=== PATIENT | female | born 1955 | race Caucasian/White ===

== ENCOUNTER → 2016-03-20 | Outpatient (CLI) | payer OTHER ==
--- NOTE | 2016-03-20 12:59 | WOMENS IMAGING REPORT ---
EXAM DESCRIPTION: BILAT SCREENING MAMMO W/CAD COMPLETED DATE/TIME: 03/20/2016 11:06 am REASON FOR STUDY: Z12.31 ROUTINE SCREENING MAMMO Z12.31 ENCNTR SCREEN MAMMOGRAM FOR MALIGNANT NEOPL ASM OF DOREEN COMPARISON: October 17 TECHNIQUE: Standard craniocaudal and mediolateral oblique views of each breast recorded using SenGenixa l acquisition. LIMITATIONS: None. FINDINGS: No masses, calcifications or architectural distortion. No areas of suspicion. Read with the assistance of CAD. .[facility] - R2 Cenova Version 1.3 .[facility] Imaging - R2 Cenova Version 1.3 .[facility] Imaging - R2 Cenova Version 2.4 .[facility] [place] - R2 Cenova Version 2.4 .[facility] - R2 Youth Support Worker Version 9.2 BREAST DENSITY: b. There are scattered areas of fibroglandular density. BIRAD: 1 NEGATIVE RECOMMENDATION: ROUTINE SCREENING COMMENT: PATIENT NOTIFIED BY LETTER. The [employer] recommends an annual screening mammogram for women aged 40 years or over. Each patient will receive a reminder prior to the anniversary date of her mammogram. The [employer] [place] [employer] (ACR) has developed recommendations for screening MRI of the breast s in certain patient populations, to be used in conjunction with mammography. Breast MRI surveillanc e may be appropriate for women with more than 20% lifetime risk of developing breast cancer as deter mined by genetic testing, significant family history of the disease, or history of mantle radiation f or Hodgkins Disease. ACR Practice Guidelines 2008. TECHNICAL DOCUMENTATION: FINDING NUMBER: (1) ASSESSMENT: (1) JOB ID: [id number] [employer]- All Rights Reserved
== END ==
LOC: WI 09:57
PROVIDERS: ATTEND Family Medicine
DX: Z12.31 Encounter for screening mammogram for malignant neoplasm of breast (principal)
CPT/HCPCS: 77067; G0202

== ENCOUNTER → 2017-05-20 | Outpatient (CLI) | payer OTHER ==
--- NOTE | 2017-05-20 12:56 | WOMENS IMAGING REPORT ---
EXAM DESCRIPTION: BILAT SCREENING MAMMO W/CAD COMPLETED DATE/TIME: 05/20/2017 8:13 am REASON FOR STUDY: SCREENING MAMMO Z12.31 ENCNTR SCREEN MAMMOGRAM FOR MALIGNANT NEOPLASM OF DOREEN COMPARISON: 2012 to 2014 TECHNIQUE: Standard craniocaudal and mediolateral oblique views of each breast recorded using digita l acquisition. LIMITATIONS: None. FINDINGS: No masses, calcifications or architectural distortion. No areas of suspicion. Read with the assistance of CAD. .[facility] - R2 Cenova Version 1.3 .[facility] Imaging - R2 Cenova Version 1.3 .[facility] Imaging - R2 Cenova Version 2.4 .[facility] [place] R2 Cenova Version 2.4 .[facility] - R2 Cardiovascular Radiologic Technologist Version 9.2 IMPRESSION: NORMAL MAMMOGRAM. BIRADS 1. BREAST DENSITY: b. There are scattered areas of fibroglandular density. BIRAD: 1 NEGATIVE RECOMMENDATION: ROUTINE SCREENING COMMENT: The patient has been notified of the results by letter per MQSA requirements. Additional no tification policies are in place for contacting patient with suspicious or incomplete findings. Quality ID #225: The [employer] recommends an annual screening mammogram for women aged 40 years or over. This facility utilizes a reminder system to ensure that all patients receive reminder letters, and/or direct phone calls for appointments. This includes reminders for routine scr eening mammograms, diagnostic mammograms, or other Breast Imaging Interventions when appropriate. Th is patient will be placed in the appropriate reminder system. The [employer] (ACR) has developed recommendations for screening MRI of the breast s in certain patient populations, to be used in conjunction with mammography. Breast MRI surveillanc e may be appropriate for women with more than 20% lifetime risk of developing breast cancer as deter mined by genetic testing, significant family history of the disease, or history of mantle radiation f or Hodgkins Disease. ACR Practice Guidelines 2008. TECHNICAL DOCUMENTATION: FINDING NUMBER: (1) ASSESSMENT: (1) JOB ID: [id number] [employer]- All Rights Reserved Reading location - IP/workstation name: [email or web address]
== END ==
LOC: WI 07:31
PROVIDERS: ATTEND Family Medicine
DX: Z12.31 Encounter for screening mammogram for malignant neoplasm of breast (principal)
CPT/HCPCS: 77067

== ENCOUNTER → 2018-07-30 | Outpatient (CLI) | payer OTHER ==
--- NOTE | 2018-08-02 14:21 | WOMENS IMAGING REPORT ---
EXAM DESCRIPTION: BILAT SCREENING MAMMO W/CAD COMPLETED DATE/TIME: 07/30/2018 9:02 am REASON FOR STUDY: Z12.31 ENCOUNTER FOR SCREENING MAMMOGRAM FOR MALIGNANT NEOPLASM OF YHREDJX52.31 E NCNTR SCREEN MAMMOGRAM FOR MALIGNANT NEOPLASM OF DOREEN COMPARISON: Multiple since 2009 EXAM PARAMETERS: Standard craniocaudal and mediolateral oblique views of each breast recorded using digital acquisition. Read with the assistance of CAD. .[facility] - Acrinta Coin Teller Version 9.2 LIMITATIONS: None. FINDINGS: RIGHT BREAST MASSES: No suspicious masses. CALCIFICATIONS: Tiny calcifications are present in the right breast retroareolar region centrally, ab out 5 cm from the nipple. These require further evaluation with compression magnification views, 90 mediolateral view whole breast. ARCHITECTURAL DISTORTION: None. DEVELOPING DENSITY: None. ASYMMETRY: None noted. OTHER: No other significant findings. LEFT BREAST MASSES: No suspicious masses. CALCIFICATIONS: No new or suspicious calcifications. ARCHITECTURAL DISTORTION: None. DEVELOPING DENSITY: None. ASYMMETRY: None noted. OTHER: No other significant findings. IMPRESSION: Calcifications in the central right breast for which additional diagnostic compression m agnification mammograms are recommended No mammographic evidence for malignancy left breast 0 Incomplete: Needs Additional Imaging Evaluation and/or prior Mammograms for Comparison. BREAST DENSITY: b. There are scattered areas of fibroglandular density. BIRAD: ASSESSMENT: 0 Incomplete: Needs Additional Imaging Evaluation and/or prior Mammograms for C omparison. RECOMMENDATION: RECOMMENDED FOLLOW-UP: Additional diagnostic mammograms right breast calcifications The patient will be contacted for additional imaging. COMMENT: The patient has been notified of the results by letter per SA requirements. Additional no tification policies are in place for contacting patient with suspicious or incomplete findings. Quality ID #225: The [employer] recommends an annual screening mammogram for women aged 40 years or over. This facility utilizes a reminder system to ensure that all patients receive reminder letters, and/or direct phone calls for appointments. This includes reminders for routine scr eening mammograms, diagnostic mammograms, or other Breast Imaging Interventions when appropriate. Th is patient will be placed in the appropriate reminder system. TECHNICAL DOCUMENTATION: FINDING NUMBER: (1) ASSESSMENT: (1) JOB ID: [id number] [employer]- All Rights Reserved Reading location - IP/workstation name: [email or web address]
== END ==
LOC: WI 08:39
PROVIDERS: ATTEND Family Medicine
DX: Z12.31 Encounter for screening mammogram for malignant neoplasm of breast (principal); R92.0 Mammographic microcalcification found on diagnostic imaging of breast
CPT/HCPCS: 77067

== ENCOUNTER → 2018-08-05 | Outpatient (CLI) | payer OTHER ==
--- NOTE | 2018-08-05 15:56 | WOMENS IMAGING REPORT ---
EXAM DESCRIPTION: RIGHT DIAGNOSTIC MAMMO W/CAD COMPLETED DATE/TIME: 08/05/2018 9:08 am REASON FOR STUDY: R92.0 MAMMOGRAPHIC MICROCALCIFICATION FOUND ON DIAGNOSTIC IMAGING OF BREAST R92.0 MAMMOGRAPHIC MICROCALCIFICATION FOUND ON DX IMAGING OF COMPARISON: Multiple since 2009 EXAM PARAMETERS: Compression magnification craniocaudal and 90 oblique images of the breast recorde d with digital acquisition. Right whole breast 90 mediolateral view Read with the assistance of CAD. .[facility] - R2 Fagot Maker Version 9.2 LIMITATIONS: None. FINDINGS: BREAST LATERALITY: Right MASSES: No suspicious masses. CALCIFICATIONS: Calcifications are present in the right breast 12 o'clock position about 5 to 6 cm fr om the nipple. These are variable in size, shape, and density. Stereotactic biopsy is recommended ( BI-RADS 5 Highly suggestive of malignancy. Biopsy should be performed in the absence of clinical con tra-indication. ). ARCHITECTURAL DISTORTION: None. DEVELOPING DENSITY: None. ASYMMETRY: None noted. OTHER: No other significant findings. IMPRESSION: Right breast calcifications variable in size shape and density for which stereotactic bi opsy is recommended BREAST DENSITY: b. There are scattered areas of fibroglandular density. BIRAD: ASSESSMENT: 5 Highly suggestive of malignancy. Biopsy should be performed in the absence of clinical contra-indication. RECOMMENDATION: RECOMMENDED FOLLOW UP: Right breast stereotactic biopsy SPECIFIC INTERVENTION/IMAGING/CONSULTATION RECOMMENDED:Right breast stereotactic biopsy for microcalc ifications 12 o'clock position COMMUNICATION:Patient notified by letter COMMENT: The patient has been notified of the results by letter per MQSA requirements. Additional no tification policies are in place for contacting patient with suspicious or incomplete findings. Quality ID #225: The [employer] recommends an annual screening mammogram for women aged 40 years or over. This facility utilizes a reminder system to ensure that all patients receive reminder letters, and/or direct phone calls for appointments. This includes reminders for routine scr eening mammograms, diagnostic mammograms, or other Breast Imaging Interventions when appropriate. Th is patient will be placed in the appropriate reminder system. TECHNICAL DOCUMENTATION: FINDING NUMBER: (1) ASSESSMENT: (1) JOB ID: [id number] [employer]- All Rights Reserved Reading location - IP/workstation name: [email or web address]
== END ==
LOC: WI 08:40
PROVIDERS: ATTEND Family Medicine
DX: R92.0 Mammographic microcalcification found on diagnostic imaging of breast (principal)

== ENCOUNTER → 2018-08-26 | Day surgery (SDC) | payer OTHER ==
[~2018-08-26] MED LIST: LIDOCAINE 1%/EPINEPHRINE INJ 20 ML VIAL ONE
--- NOTE | 2018-08-26 14:01 | WOMENS IMAGING REPORT ---
EXAM DESCRIPTION: RIGHT DIG DX MAMMO NO CHG COMPLETED DATE/TIME: 08/26/2018 1:20 pm REASON FOR STUDY: POST STEREO CLIP PLACEMENT COMPARISON: None. TECHNIQUE: CC and true lateral views of the right breast. LIMITATIONS: None. FINDINGS: There is a marker clip in the upper outer quadrant at site of previously described microca lcifications. IMPRESSION: Documentation of marker clip placement. TECHNICAL DOCUMENTATION: JOB ID: [id number] [employer]- All Rights Reserved Reading location - IP/workstation name: [email or web address]
--- NOTE | 2018-08-26 14:18 | Discharge Summary ---
Discharge Summary (SDC) - Discharge Final Diagnosis: Microcalcifications right breast Date of Surgery: 08/26/18 Discharge Date: 08/26/18 Condition: Good Treatment or Instructions: Supportive bra; Tylenol or Motrin as needed pain; follow-up with Dr. Rodriguez at [place] [facility] in 1 to 2 weeks. Referrals: MORA PAULA MD [Primary Care Provider] - Discharge Diet: As Tolerated Discharge Activity: Activity As Tolerated Home Care Assistance: None Needed Report the Following to Your Physician Immediately: Shortness of Breath, Increase in Pain, Fever over 101 Degrees
--- NOTE | 2018-08-26 14:35 | Operative Report ---
Operative Report DATE OF SURGERY: 08/26/18 PREOPERATIVE DIAGNOSIS: Abnormal microcalcifications deep 9 o'clock position ri ght breast POSTOPERATIVE DIAGNOSIS: Same OPERATION: 1. Stereotactically directed incision mammotomy core biopsies right breast microcalcifications. 2. Placement of clip marker right breast. 3. Interpretation of intraoperative mammography. 4. Interpretation of specimen radiograph SURGEON: HUGO BURCH ANESTHESIA: Local TISSUE REMOVED OR ALTERED: Multiple cores right breast COMPLICATIONS: None ESTIMATED BLOOD LOSS: Minimal INTRAOPERATIVE FINDINGS: See below PROCEDURE: Stereotactic suite in the radiology department [facility]. The right breast was placed in compression, and a CC approach was used to localize the target microcalcifications in the deep aspect of the right breast at the 9 o'clock position. Surgical plan surgical timeout were conducted. The surface of the right breast was prepped with Betadine, anesthetized 1% plain lidocaine. A jonathan was made and skin with 11 blade and the mammotome advanced appropriate depth. Pre-and post fire films showed good alignment between the microcalcifications and the mammotome tip. Approximately 9 cores were taken of the target microcalcifications. Specimens were collected and placed on a Benja dish, and imaged using the specimen radiograph machine. Findings were consistent with acquisition of microcalcifications consistent with the target tissue. We placed a clip marker in the breast cavity, remove the mammotome, and post biopsy imaging showed retention of the clip in the right breast cavity. Compression was applied to the right breast. Patient tolerated procedure well. There were no complications. Discharge instructions provided.
== END ==
LOC: RAD 11:04
PROVIDERS: ATTEND Surgery
DX: R92.0 Mammographic microcalcification found on diagnostic imaging of breast (principal)
CPT/HCPCS: 88305 ×2; 19081; J3490

== ENCOUNTER 2018-11-17 06:52 | Day surgery (SDC) | payer OTHER ==
[2018-11-15 11:52] LABS: HEMATOCRIT 41.3 % (36.0-47.0); HEMOGLOBIN 13.9 g/dL (12.0-15.5); MEAN CORPUSCULAR HEMOGLOBIN 28.2 pg (27.0-33.4); MEAN CORPUSCULAR HGB CONC 33.6 g/dL (32.0-36.0); MEAN CORPUSCULAR VOLUME 84 fl (80-97); PLATELET COUNT 409 10^3/uL (150-450); RED BLOOD COUNT 4.92 10^6/uL (3.72-5.28); RED CELL DISTRIBUTION WIDTH 14.6 % (11.5-14.0)
--- NOTE | 2018-11-15 12:06 | EKG REPORT ---
SEVERITY:- ABNORMAL ECG - SINUS RHYTHM INCOMPLETE RIGHT BUNDLE BRANCH BLOCK : Confirmed by: Saida Nix MD 15-Nov-2018 12:05:55
[2018-11-15 12:10] LABS: ANION GAP 13 (5-19); BLOOD UREA NITROGEN 11 mg/dL (7-20); CALCIUM 10.8 mg/dL (8.4-10.2); CARBON DIOXIDE 29 mmol/L (22-30); CHLORIDE 97 mmol/L (98-107); GLUCOSE 121 mg/dL (75-110); POTASSIUM 4.5 mmol/L (3.6-5.0)
[~2018-11-17 06:52] MED LIST changes: +CEFAZOLIN 1 GM/D5W RTU 1 GM/50 ML RTUPB IV PRN; +LACTATED RINGERS 1000 ML IV PRN; +LIDOCAINE 0.5% INJ-PF (5 MG/ML) 50 ML SDV SUBCUT PRN; -LIDOCAINE 1%/EPINEPHRINE INJ 20 ML VIAL ONE
[2018-11-17] MEDS ORDERED: CEFAZOLIN 1 GM/D5W RTU 1 GM/50 ML RTUPB IV ONE (07:09)
[2018-11-17] MEDS ORDERED: LIDOCAINE 4% TRANSPARENT DRESSING 5 GM KIT TP ONE (07:30)
[2018-11-17] MEDS ORDERED: LIDOCAINE 4% TRANSPARENT DRESSING 5 GM KIT ONE (07:37)
--- NOTE | 2018-11-17 08:06 | EKG REPORT ---
SEVERITY:- BORDERLINE ECG - SINUS RHYTHM BORDERLINE T ABNORMALITIES, ANTERIOR LEADS : Confirmed by: Saida Nix MD 17-Nov-2018 08:05:36
[2018-11-17] MEDS ORDERED: LIDOCAINE 2% INJ (20 MG/ML) 20 ML MDV ONE (08:25)
[2018-11-17 08:39] LABS: HEMOGLOBIN 12.8 g/dL (12.0-15.5); MEAN CORPUSCULAR HEMOGLOBIN 27.7 pg (27.0-33.4); MEAN CORPUSCULAR HGB CONC 32.9 g/dL (32.0-36.0); MEAN CORPUSCULAR VOLUME 84 fl (80-97); PLATELET COUNT 352 10^3/uL (150-450); RED BLOOD COUNT 4.64 10^6/uL (3.72-5.28); RED CELL DISTRIBUTION WIDTH 14.7 % (11.5-14.0); WHITE BLOOD COUNT 6.5 10^3/uL (4.0-10.5)
[2018-11-17] MEDS ORDERED: SUCCINYLCHOLINE CHLORIDE INJ 200 MG/10 ML VIAL ONE (10:00)
[2018-11-17] MEDS ORDERED: LIDOCAINE 1%/EPINEPHRINE INJ 20 ML VIAL ONE (10:11)
[2018-11-17] MEDS ORDERED: MICROFIBRILLAR COLLAGEN 1 GM PACK ONE (10:11)
[2018-11-17] MEDS ORDERED: HYDROMORPHONE HCL INJ/PF 2 MG/ML AMPULE ONE (10:16)
[2018-11-17] MEDS ORDERED: MIDAZOLAM 2 MG/2 ML INJ ONE (10:16)
[2018-11-17] MEDS ORDERED: FENTANYL CITRATE INJ/PF 250 MCG/5 ML AMPULE ONE (10:16)
[2018-11-17] MEDS ORDERED: PROPOFOL INJ 200 MG/20 ML VIAL IV ONE (10:17)
[2018-11-17] MEDS ORDERED: METHYLENE BLUE 50 MG/10 ML AMPULE ONE (10:29)
[2018-11-17] MEDS ORDERED: DEXAMETHASONE SOD PHOSPHATE INJ 4 MG/1 ML VIAL ONE (10:35)
[2018-11-17] MEDS ORDERED: ONDANSETRON HCL INJ/PF 4 MG/2 ML SDV ONE (10:35)
--- NOTE | 2018-11-17 11:15 | RADIOLOGY REPORT (SQ) ---
EXAM DESCRIPTION: NM LYMPHATICS/LYMPH GLANDS COMPLETED DATE/TIME: 11/17/2018 10:33 am REASON FOR STUDY: MALIGNANT NEOPLASM OF RT BREAST C50.911 MALIGNANT NEOPLASM OF UNSP SITE OF RIGHT FEMALE SAYRA COMPARISON: None. RADIONUCLIDE AND DOSE: 549 microcuries TC-99m tilmanocept - [employer]. The route of agent administration: Subcutaneous in the skin. TECHNIQUE: The skin of the right breast was prepped in sterile fashion. The radiopharmaceutical was administered in equally divided doses in the periareolar breast. LIMITATIONS: None. FINDINGS: Images demonstrate activity at the injection site. IMPRESSION: ADMINISTRATION OF RADIOPHARMACEUTICAL FOR SENTINEL LYMPH NODE EVALUATION. TECHNICAL DOCUMENTATION: JOB ID: [id number] [employer]- All Rights Reserved Reading location - IP/workstation name: [email or web address]
[2018-11-17] MEDS ORDERED: LIDOCAINE 1% INJ (10 MG/ML) 10 ML MDV INJ ONE (11:41)
[2018-11-17] MEDS ORDERED: PROMETHAZINE HCL INJ 25 MG/1 ML VIAL IV PRN (11:47)
[2018-11-17] MEDS ORDERED: DIPHENHYDRAMINE HCL 50 MG/ML VIAL IV PRN (11:47)
[2018-11-17] MEDS ORDERED: FENTANYL CITRATE INJ/PF 100 MCG/2 ML AMPUL IV PRN ×3 (11:47)
[2018-11-17] MEDS ORDERED: MEPERIDINE HCL/PF INJ 25 MG/1 ML DISP.SYRIN IV PRN (11:47)
[2018-11-17] MEDS ORDERED: MORPHINE SULFATE 10 MG/ML INJ IV PRN (11:47)
[2018-11-17] MEDS ORDERED: OXYCODONE-ACETAMINOPHEN 5-325 MG TABLET PO PRN (13:04)
--- NOTE | 2018-11-17 13:04 | Discharge Summary ---
Discharge Summary (SDC) - Discharge Final Diagnosis: Right breast cancer Date of Surgery: 11/17/18 Discharge Date: 11/17/18 Condition: Good Treatment or Instructions: [facility] [address], [place] [address] Care Instructions Following Your Lumpectomy with Axillary Lymph Node Dissection Activities: Resume your normal activities when you feel comfortable. It is best to remain as active as possible to speed your recovery. It is common to experience some fatigue after surgery. Avoid strenuous activity such as weight lifting, tennis, etc at your surgical site for one week. Perform gentle arm exercises daily and do not favor your operative arm to due increased risk of mobility issues postoperatively. No driving for 7 days after surgery. Do not drive if you are taking pain medication other than Tylenol or Ibuprofen. No swimming, tub baths or soaking in a hot tub for 4 weeks. There are no dietary restrictions. Do not smoke as this impairs wound healing. Surgical Site care: You may shower 24 hours after surgery, leave skin glue intact. Wash the wound with soap and water using your hands. Do not scrub the incision. Pat the area dry with a towel. You do not need to recover the wound although some patients find that they feel more comfortable using a light dressing for a few days to absorb any minimal drainage which may occur. Many patients also find that keeping a dressing around the drain exit site is helpful to absorb any drainage which may leak around the tubing. If you use a dressing in this manner change it at least every day. Do not use heating pad or apply an ice pack to the operative site. You may apply deodorant if you are careful to avoid getting it on the wound itself. Most patients are more comfortable if they wear a supportive, sports-type bra 08/09 for the first few days after surgery. Ice packs may help relieve the discomfort and swelling as well in the first [address] an ice pack directly on the skin. Do not use a heating pad on the operative sites. Medications: You may take Toradol 10mg one pill by mouth every six hours as needed for pain. Do not take additional NSAIDs with Toradol. You may take Tylenol as a supplement. Resume all of your normal prescription medications after your surgery unless instructed otherwise. You may experience constipation after surgery while taking pain medications. If using a narcotic on a regular basis, take a stool softener such as Colace twice a day. It is helpful to stay hydrated by drinking lots of fluids. Walking is also helpful and is good exercise after surgery. If you need extra help, use Milk of Magnesia according to the directions on the package. Follow-up: Call our office at to make a follow-up appointment in 10-14 days. Your doctor will call to discuss the pathology report with you as soon as it is available. Concerns: Some bruising will occur and will go away over time. If you have a fever of 101.5 or greater, chills, redness at the incision site, excessive drainage from your wound or severe pain not relieved by pain medication, call your doctor. A physician is available 24 hours a day 7 days a week in addition to regular office hours. If problems arise after normal office hours please call the hospital at . Please call if you have any questions or concerns. Prescriptions: Ketorolac Tromethamine [Toradol 10 mg Tablet] 10 mg PO Q6HP PRN #20 tablet PRN Reason: Referrals: MORA PAULA MD [Primary Care Provider] - Discharge Diet: As Tolerated Discharge Activity: Activity As Tolerated, Balance Activity w/Rest, Walk Frequently Report the Following to Your Physician Immediately: Increase in Pain, Fever over 101 Degrees, Unusual Bleeding, Redness, Swelling, Warmth, Increased Soreness, Drainage-Foul Smelling
--- NOTE | 2018-11-17 13:10 | Operative Report ---
Operative Report DATE OF SURGERY: 11/17/18 PREOPERATIVE DIAGNOSIS: 1. Invasive lobular carcinoma right breast status post stereotactically. 2. Very strong family history of breast cancer. 3. CHEK-2 mutation POSTOPERATIVE DIAGNOSIS: Same OPERATION: 1. Needle localized open right breast lumpectomy. 2. Excision of posterior and anterior lumpectomy cavity munoz. 3. [place] lymph node biopsy right axilla x3 using dual mapping technique. 4. Interpretation of specimen radiograph SURGEON: HUGO RODRIGUEZ 1ST SOLDERING TECHNICIAN: HERSON FORD ANESTHESIA: GA TISSUE REMOVED OR ALTERED: Lumpectomy specimen right breast; posterior cavity margin; anterior cavity margin; sentinel lymph node x3 COMPLICATIONS: None ESTIMATED BLOOD LOSS: Minimal INTRAOPERATIVE FINDINGS: See below PROCEDURE: Patient was seen in the preop holding area with the right breast was marked. She had undergone needle localization of the clip marker in the right breast status post stereotactic biopsy, as well as lymphoscintigraphy of the right breast. There was an area of increased activity in the right axilla based on bedside neoprobe assessment by Dr. Rodriguez. The patient was then taken to the main operating room where general anesthesia was induced. Left arm was abducted, dressing removed from the right breast. The previously placed wire and needle were trimmed approximately 2 cm from the skin. We now injected approximately 2 cc of full-strength methylene blue in the right breast, areole or border, 10 o'clock position. The right breast was massaged. The right breast and axilla were then prepped and draped in sterile fashion. Surgical plan surgical timeout were conducted. We proceeded with the right breast lumpectomy first. I spoke with Dr. sewell, the radiologist, who indicated that the needle and wire were placed anteriorly into the central aspect of the right breast, above the areolar complex, with no blue dye injected. Therefore we anesthetized the skin adjacent to the localizing wire, and made approximately a 6cm incision encompassing the area in the superior aspect of the right breast. We now proceeded to remove a loose core of fat and the breast parenchyma in a calm-like fashion. This was rather challenging because the patient's breast was extremely fatty. The lumpectomy specimen was taken down to include the tip of the wire aspect of the right breast. The specimen was removed, and marked with a short suture in the superior position and a long suture in the lateral position. We then performed specimen radiograph demonstrated retention of the localization wire, and the previously placed clip marker. 2 views were obtained, and images reviewed with Dr. Bauer to confirm the above. The lumpectomy specimen was then analyzed by Dr. Edmund Cortes who felt that there were 2 nodules within the specimen likely the target tissue. Careful inspection of the lumpectomy cavity revealed a slightly fibrous area in the deep posterior wall. Therefore a posterior-deep portion of the lumpectomy cavity was resected to encompass this fibrous area. It was marked with sutures in the superior position, short, and lateral position, long. This was sent to Dr. Edmund Cortes who inspected it fresh, and felt the fibrotic area was in fact on the anterior or deep side of the specimen wall. Per Dr. Cortes's request, a third right breast specimen was obtained. This represented the anterior medial side of the original lumpectomy cavity. The reason for this was Dr. Cortes is concerned that index lumpectomy tissue may have contained a nodule close to the original margin. The small piece of primarily fatty tissue was removed from the breast, with a stitch placed in its center representing the inside or cavity side of the wall. Dry sponge was placed in the recesses of the wound, and our attention turned to the right axilla. Using the neoprobe for guidance, a suitable site for mini axillary incision was made. Skin was anesthetized with 1% plain lidocaine and a 3 cm incision was made in the low axilla. [place] node harvesting took place with the first second and third lymph nodes, all Level One, all blue and hot sent for permanent analysis. Of note all 3 lymph nodes in the same area was surrounded by amount of fibrotic tissue, possibly scirrhous reaction: They did not appear to be grossly involved with malignancy. The first sentinel node in vivo count was 7815 and the ex vivo count was 11, 495; second lymph node ex vivo count was 1407 and the third sentinel node had an in vivo count of 1980 an ex vivo count of 900. [place] counts were negligible. We felt that the breast conserving operation was complete. We checked the cavit ies for bleeding there was none. Avitene slurry was placed in the recesses of the wound, and wounds closed with 3-0 Vicryl Dermabond glue. Patient tolerated procedure well, extubated, and taken to recovery room stable condition. The physician family and divorce legal assistant, Ms. Salguero, provided assistance during this case by: Assisting retracting tissue, instillation of local anesthesia and closure of skin incisions.
[2018-11-17] MEDS ORDERED: OXYCODONE-ACETAMINOPHEN 5-325 MG TABLET ONE (13:43)
[2018-11-17] MEDS ORDERED: OXYCODONE-ACETAMINOPHEN 5-325 MG TABLET PO ONE (13:47)
[2018-11-17 15:01] VITALS: BP 160/84
--- NOTE | 2018-11-17 15:17 | WOMENS IMAGING REPORT ---
EXAM DESCRIPTION: WIRE LOC MAMMO COMPLETED DATE/TIME: 11/17/2018 11:07 am REASON FOR STUDY: RT BREAST NEEDLE LOC FOR RT BREAST CANCER C50.911 MALIGNANT NEOPLASM OF UNSP SITE OF RIGHT FEMALE SAYRA COMPARISON: 08/26/2018 TECHNIQUE: The localizer clip in the right breast was localized mammographically using a grid marke r. The skin of the breast was prepped in sterile fashion and local anesthesia was provided. The loc alization needle was advanced to the target. The tip was positioned adjacent to the target and confi rmed with two orthogonal views. Surgical dye was not injected for this procedure. The wire was place d through the needle and the hook engaged. Post procedure mammogram demonstrates satisfactory positio n of the needle and wire. Specimen radiograph demonstrates the intact localization wire as well as the targeted lesion within t he biopsy specimen. LIMITATIONS: None. FINDINGS: Procedure as above. Pathology: Pending. IMPRESSION: SUCCESSFUL NEEDLE LOCALIZATION OF THE LESION IN THE RIGHT BREAST. FOLLOW-UP PER THE PATIENT'S SURGEON. TECHNICAL DOCUMENTATION: JOB ID: [id number] [employer]- All Rights Reserved Reading location - IP/workstation name: [email or web address]
--- NOTE | 2018-11-17 15:18 | RADIOLOGY REPORT (SQ) ---
EXAM DESCRIPTION: BREAST SPECIMEN COMPLETED DATE/TIME: 11/17/2018 12:32 pm REASON FOR STUDY: RIGHT BREAST SPECIMEN IN OR C50.911 MALIGNANT NEOPLASM OF UNSP SITE OF RIGHT FEMA [place] SAY[place] COMPARISON: Earlier the same day. TECHNIQUE: Specimen radiograph from breast procedure performed in the operating room. LIMITATIONS: None. FINDINGS: Specimen radiograph from breast procedure performed in the operating room. Please see procedure note for details and final pathology. IMPRESSION: Specimen radiograph. TECHNICAL DOCUMENTATION: JOB ID: [id number] Reading location - IP/workstation name: [email or web address]
== END 2018-11-17 14:45 | disposition home or self-care (01) ==
LOC: OROUT 06:52
PROVIDERS: ATTEND Surgery
DX: C50.911 Malignant neoplasm of unspecified site of right female breast (principal); I10 Essential (primary) hypertension; Z79.84 Long term (current) use of oral hypoglycemic drugs; Z79.82 Long term (current) use of aspirin; Z79.899 Other long term (current) drug therapy; E66.9 Obesity, unspecified; Z68.41 Body mass index [BMI] 40.0-44.9, adult; G47.33 Obstructive sleep apnea (adult) (pediatric); E03.9 Hypothyroidism, unspecified
CPT/HCPCS: 19301; 38500; 93005 ×2; 36415 ×2; 82962; 85027 ×2; 80048; 88342 ×2; 88341 ×2; 88307 ×2; 78195; 93010 ×2; 01610; 19281; 76098; A9520; J2250; J3490 ×4; J0690; J1100; J3010; J0330; J2405; J2704; Q9968; 1610; J1170

== ENCOUNTER → 2018-12-29 | Outpatient (CLI) | payer OTHER ==
--- NOTE | 2018-12-29 13:07 | RADIOLOGY REPORT (SQ) ---
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 RADIONUCLIDE AND DOSE: 21.8 millicuries Tc99m HDP. The route of agent administration: Intravenous. ADDITIONAL DRUGS AND DOSES: None. TECHNIQUE: Routine delayed images at 3 hour post radionuclide injection acquired of the bony skeleto n including anterior and posterior whole-body projections and additional focused images as needed. LIMITATIONS: None. FINDINGS: BONES: Minimal uptake involving the lumbar spine most marked at L1 and L2. This is most l ikely degenerative. There is uptake in the right ankle and left midfoot. KIDNEYS: Symmetric excretion without obstruction. OTHER: No other significant finding. IMPRESSION: No evidence of metastatic disease. COMMENT: Quality measure 147: Current bone scan is compared with any available plain radiographs, p rior bone scans, and CT/MRI. TECHNICAL DOCUMENTATION: JOB ID: [id number] [employer]- All Rights Reserved Reading location - IP/workstation name: [email or web address]
== END ==
LOC: RAD 08:05
PROVIDERS: ATTEND Internal Medicine Hematology & Oncology
DX: C50.811 Malignant neoplasm of overlapping sites of right female breast (principal)
CPT/HCPCS: 78306; A9561; Q9969

== ENCOUNTER → 2018-12-31 | Outpatient (CLI) | payer OTHER ==
--- NOTE | 2019-01-01 17:08 | RADIOLOGY REPORT (SQ) ---
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 Images reviewed with lung, soft tissue and bone windows. Reconstructed coronal a nd sagittal MPR images reviewed. All images stored on PACS. CT scan of the abdomen and pelvis performed with intravenous and with oral contrastusing helical scan ghazal technique with dynamic intravenous contrast injection. Images reviewed with lung, soft tissue a nd bone windows. Reconstructed coronal and sagittal MPR images reviewed. Delayed images for evaluat ion of the urinary system also acquired and evaluated. All images stored on PACS. All CT scanners at this facility use dose modulation, iterative reconstruction, and/or weight based d osing when appropriate to reduce radiation dose to as low as reasonably achievable (ALARA). [facility]: Dose Right [facility]: CareDose [facility]: Dose Right [facility]: Teradose 4D [facility]: [employer] Technologies RADIATION DOSE: CT Rad equipment meets quality standard of care and radiation dose reduction techniq ues were employed. CTDIvol: 24.4 - 27.4 mGy. DLP: 3996 mGy-cm. . LIMITATIONS: None. FINDINGS: CHEST: LUNGS AND PLEURA: No opacities, nodules, masses. No pneumothorax. No effusions. HILAR AND MEDIASTINAL STRUCTURES: No identified masses or abnormal nodes. HEART AND VASCULAR STRUCTURES: No aneurysm or dissection. No central pulmonary emboli. No pericardi al effusion. HARDWARE: None. THYROID AND OTHER SOFT TISSUES: Thyroid unremarkable. Post right breast surgery with 3.7 x 2 cm lump ectomy seroma. 2 cm right axillary lymph node axial image 18. BONES: No significant finding. OTHER: No other significant finding. ABDOMEN AND PELVIS: LIVER: Normal size. No masses. No dilated ducts. SPLEEN: Normal size. No focal lesions. PANCREAS: No masses. No significant calcifications. No adjacent inflammation or peripancreatic fluid collections. Pancreatic duct not dilated. GALLBLADDER: Gallstones. No inflammatory changes to suggest cholecystitis. ADRENAL GLANDS: No significant masses or asymmetry. RIGHT KIDNEY AND URETER: No solid masses. No significant calcification. No hydronephrosis or hydroure ter. LEFT KIDNEY AND URETER: No solid masses. No significant calcification. No hydronephrosis or hydrouret er. AORTA AND VESSELS: No aneurysm. No dissection. Renal arteries, SMA, celiac without stenosis. RETROPERITONEUM: No retroperitoneal adenopathy, hemorrhage or masses. BOWEL AND PERITONEAL CAVITY: Patient drank oral contrast. No masses or inflammatory changes. No mulu e fluid or peritoneal masses. Few scattered colonic diverticuli without CT signs of acute diverticul itis APPENDIX: Normal. ABDOMINAL WALL: No masses. No hernias. PELVIS: No mass or free fluid. Normal bladder. Normal size female pelvic organs. BONES: No significant or acute findings. OTHER: No other significant finding. IMPRESSION: Post right breast surgery. No CT evidence of metastatic disease given history of breast cancer over the chest abdomen or pelvis Gallstones without CT evidence of acute cholecystitis. Colonic diverticulosis without CT signs of ac [place] diverticulitis. NORMAL CT OF THE ABDOMEN AND PELVIS WITH ORAL AND INTRAVENOUS CONTRAST. TECHNICAL DOCUMENTATION: JOB ID: [id number] Quality ID # [id number]: Final reports with documentation of one or more dose reduction techniques (e.g., Au tomated exposure control, adjustment of the mA and/or kV according to patient size, use of iterative reconstruction technique) 2010 [employer]- All Rights Reserved Reading location - IP/workstation name: [email or web address]
--- NOTE | 2019-01-01 17:08 | RADIOLOGY REPORT (SQ) ---
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 Images reviewed with lung, soft tissue and bone windows. Reconstructed coronal a nd sagittal MPR images reviewed. All images stored on PACS. CT scan of the abdomen and pelvis performed with intravenous and with oral contrastusing helical scan ghazal technique with dynamic intravenous contrast injection. Images reviewed with lung, soft tissue a nd bone windows. Reconstructed coronal and sagittal MPR images reviewed. Delayed images for evaluat ion of the urinary system also acquired and evaluated. All images stored on PACS. All CT scanners at this facility use dose modulation, iterative reconstruction, and/or weight based d osing when appropriate to reduce radiation dose to as low as reasonably achievable (ALARA). [facility]: Dose Right [facility]: CareDose [facility]: Dose Right [facility]: Teradose 4D [facility]: [employer] RADIATION DOSE: CT Rad equipment meets quality standard of care and radiation dose reduction techniq ues were employed. CTDIvol: 24.4 - 27.4 mGy. DLP: 3996 mGy-cm. . LIMITATIONS: None. FINDINGS: CHEST: LUNGS AND PLEURA: No opacities, nodules, masses. No pneumothorax. No effusions. HILAR AND MEDIASTINAL STRUCTURES: No identified masses or abnormal nodes. HEART AND VASCULAR STRUCTURES: No aneurysm or dissection. No central pulmonary emboli. No pericardi al effusion. HARDWARE: None. THYROID AND OTHER SOFT TISSUES: Thyroid unremarkable. Post right breast surgery with 3.7 x 2 cm lump ectomy seroma. 2 cm right axillary lymph node axial image 18. BONES: No significant finding. OTHER: No other significant finding. ABDOMEN AND PELVIS: LIVER: Normal size. No masses. No dilated ducts. SPLEEN: Normal size. No focal lesions. PANCREAS: No masses. No significant calcifications. No adjacent inflammation or peripancreatic fluid collections. Pancreatic duct not dilated. GALLBLADDER: Gallstones. No inflammatory changes to suggest cholecystitis. ADRENAL GLANDS: No significant masses or asymmetry. RIGHT KIDNEY AND URETER: No solid masses. No significant calcification. No hydronephrosis or hydroure ter. LEFT KIDNEY AND URETER: No solid masses. No significant calcification. No hydronephrosis or hydrouret er. AORTA AND VESSELS: No aneurysm. No dissection. Renal arteries, SMA, celiac without stenosis. RETROPERITONEUM: No retroperitoneal adenopathy, hemorrhage or masses. BOWEL AND PERITONEAL CAVITY: Patient drank oral contrast. No masses or inflammatory changes. No mulu e fluid or peritoneal masses. Few scattered colonic diverticuli without CT signs of acute diverticul itis APPENDIX: Normal. ABDOMINAL WALL: No masses. No hernias. PELVIS: No mass or free fluid. Normal bladder. Normal size female pelvic organs. BONES: No significant or acute findings. OTHER: No other significant finding. IMPRESSION: Post right breast surgery. No CT evidence of metastatic disease given history of breast cancer over the chest abdomen or pelvis Gallstones without CT evidence of acute cholecystitis. Colonic diverticulosis without CT signs of ac [place] diverticulitis. NORMAL CT OF THE ABDOMEN AND PELVIS WITH ORAL AND INTRAVENOUS CONTRAST. TECHNICAL DOCUMENTATION: JOB ID: [id number] Quality ID # [id number]: Final reports with documentation of one or more dose reduction techniques (e.g., Au tomated exposure control, adjustment of the mA and/or kV according to patient size, use of iterative reconstruction technique) 2010 [employer]- All Rights Reserved Reading location - IP/workstation name: [email or web address]
== END ==
LOC: RAD 12:27
PROVIDERS: ATTEND Internal Medicine Hematology & Oncology
DX: C50.811 Malignant neoplasm of overlapping sites of right female breast (principal); K80.80 Other cholelithiasis without obstruction; K57.30 Diverticulosis of large intestine without perforation or abscess without bleeding
CPT/HCPCS: 71260; 74177; 82565

== ENCOUNTER 2019-01-26 05:36 | Day surgery (SDC) | payer OTHER ==
[2019-01-19 09:05] LABS: HEMATOCRIT 40.4 % (36.0-47.0); HEMOGLOBIN 13.3 g/dL (12.0-15.5); MEAN CORPUSCULAR HEMOGLOBIN 27.7 pg (27.0-33.4); MEAN CORPUSCULAR HGB CONC 32.8 g/dL (32.0-36.0); MEAN CORPUSCULAR VOLUME 85 fl (80-97); PLATELET COUNT 362 10^3/uL (150-450); RED BLOOD COUNT 4.78 10^6/uL (3.72-5.28); RED CELL DISTRIBUTION WIDTH 15.6 % (11.5-14.0); WHITE BLOOD COUNT 5.6 10^3/uL (4.0-10.5)
[2019-01-19 09:37] LABS: ANION GAP 14 (5-19); BLOOD UREA NITROGEN 12 mg/dL (7-20); CALCIUM 10.3 mg/dL (8.4-10.2); CARBON DIOXIDE 26 mmol/L (22-30); CHLORIDE 98 mmol/L (98-107); GLUCOSE 241 mg/dL (75-110); POTASSIUM 4.5 mmol/L (3.6-5.0)
--- NOTE | 2019-01-19 11:44 | EKG REPORT ---
SEVERITY:- BORDERLINE ECG - SINUS RHYTHM CONSIDER ANTERIOR INFARCT BORDERLINE T ABNORMALITIES, ANTERIOR LEADS : Confirmed by: Saida Nix MD 19-Jan-2019 11:44:12
[~2019-01-26 05:36] MED LIST changes: -CEFAZOLIN 1 GM/D5W RTU 1 GM/50 ML RTUPB IV PRN; +CEFAZOLIN SODIUM 1 GM in DEXTROSE 5%-WATER 50 ML IV PRN
[2019-01-26] MEDS ORDERED: FENTANYL CITRATE INJ/PF 250 MCG/5 ML AMPULE ONE ×2 (07:03→09:13)
[2019-01-26] MEDS ORDERED: MORPHINE SULFATE 10 MG/ML INJ ONE ×2 (07:04→09:14)
[2019-01-26] MEDS ORDERED: PROPOFOL INJ 200 MG/20 ML VIAL IV ONE (07:04)
[2019-01-26] MEDS ORDERED: MIDAZOLAM 2 MG/2 ML INJ ONE (07:05)
[2019-01-26] MEDS ORDERED: MICROFIBRILLAR COLLAGEN 1 GM PACK ONE (07:17)
[2019-01-26] MEDS ORDERED: LIDOCAINE 1%/EPINEPHRINE INJ 20 ML VIAL ONE (07:17)
[2019-01-26] MEDS ORDERED: DIPHENHYDRAMINE HCL 50 MG/ML VIAL IV PRN (08:00)
[2019-01-26] MEDS ORDERED: MORPHINE SULFATE 10 MG/ML INJ IV PRN (08:00)
[2019-01-26] MEDS ORDERED: PROMETHAZINE HCL INJ 25 MG/1 ML VIAL IV PRN (08:00)
[2019-01-26] MEDS ORDERED: MEPERIDINE HCL/PF INJ 25 MG/1 ML DISP.SYRIN IV PRN (08:00)
[2019-01-26] MEDS ORDERED: FENTANYL CITRATE INJ/PF 100 MCG/2 ML AMPUL IV PRN (08:00)
[2019-01-26] MEDS ORDERED: OXYCODONE-ACETAMINOPHEN 5-325 MG TABLET PO PRN ×3 (08:00→11:05)
[2019-01-26] MEDS ORDERED: KETOROLAC TROMETHAMINE INJ/PF 30 MG/1 ML SDV IV PRN (11:05)
[2019-01-26] MEDS ORDERED: NORMAL SALINE 1000 ML 1,000 ML IV PRN (11:05)
[2019-01-26] MEDS ORDERED: ONDANSETRON HCL INJ/PF 4 MG/2 ML SDV IV PRN (11:05)
[2019-01-26] MEDS ORDERED: KETOROLAC TROMETHAMINE 10 MG TABLET PO PRN (11:05)
--- NOTE | 2019-01-26 11:05 | Operative Report ---
Operative Report DATE OF SURGERY: 01/26/19 PREOPERATIVE DIAGNOSIS: 1. Invasive lobular carcinoma right breast, status post right breast lumpectomy and sentinel lymph node biopsy with residual cancer right breast. 2. Macromastia. 3. Strong family history of breast cancer. 4. CHEK-2 genetic mutation POSTOPERATIVE DIAGNOSIS: Same OPERATION: 1. Completion of right mastectomy with drain placement x2. 2. Risk reduction contralateral left mastectomy with drain placement x2 SURGEON: HUGO BURCH ANESTHESIA: GA TISSUE REMOVED OR ALTERED: Right breast with the sutures, long in the lateral position, short in the superior position; breast with silk sutures, long in the left lateral position, short in the superior position COMPLICATIONS: None ESTIMATED BLOOD LOSS: 150 cc INTRAOPERATIVE FINDINGS: See below PROCEDURE: The patient was seen in the preop holding area, breast marked, then taken to the main operating room where general anesthesia was induced. The arms were abducted, the patient was placed in a semi-reverse Trendelenburg position. Markings were made on both breast for planned bilateral mastectomy. Both breast chest wall and axilla were all prepped and draped in sterile fashion. Surgical plan and surgical timeout were conducted. We approached the right breast first. The intended line of incision encompassed the previous lumpectomy site, and the low axillary sentinel lymph node site. Lips was then cut into the right breast approximately 15 cm wide, and 50 cm long. Superior skin flaps raised with electrocautery. Naturally, due to patient's extremely large breasts, the flap development rather tedious developing the appropriate plane between the subcutaneous tissue, and the breast fat. The inferior skin flap was raised in a complementary fashion. The right breast was then taken off of the chest wall from the infraclavicular area, all the way to the sternal costal junction, inferiorly down to the origination of the serratus anterior muscle, and laterally towards the neural aspect of the latissimus dorsi muscle. Breast was taken off of the upper serratus muscle, and a portion of the lower axilla including several inflammatory appearing lymph nodes were taken with the right breast. The breast was marked with a long suture in the lateral position, short suture the superior position using 2-0 silk suture. The specimen was sent for permanent analysis. Hemostasis was checked and felt to be satisfactory. Laparotomy pads were packed in the recess of the lower right axilla We now performed the left mastectomy in an identical fashion. Of note there was no visible tumor encountered in either the right or the left mastectomy specimens. The left breast was similarly marked with a long suture lateral position short suture in the superior position and specimen sent for permanent analysis in formalin. We checked both wounds for any mechanical bleeding and there was none. Estimated blood loss was felt to be 150 cc. 2 large Nacho drains were placed in the right inferior lateral skin flap, and 2 additional Nacho drains were placed in the left lateral inferior skin flap. The peritoneal drains were directed in the following manner: The medial most drain covered the chest wall area, and the lateral most drain covered the lower axillary area. Of note the operative field following the bilateral mastectomies communicated underneath the sternal skin bridge. Both mastectomy incisions were closed with multiple running and interrupted 2-0 Vicryl sutures. Of note the skin flaps were pink and slightly injected in areas but did not appear ischemic. Once the incisions were closed, the drains were hooked to bulb suction with satisfactory vacuum. The skin incisions were then closed with a combination of Enfilm Dermabond glue. Patient tolerated the procedure well, extubated, taken recovery in stable condition. Total operating time approximately 2.5 hours.
[2019-01-26] MEDS ORDERED: CEFAZOLIN 1 GM/D5W RTU 1 GM/50 ML RTUPB IV SCH (11:15)
[2019-01-26] MEDS ORDERED: ACETAMINOPHEN INJ/PF 1000 MG/100 ML SDV IV SCH (12:00)
[2019-01-26] MEDS ORDERED: KETOROLAC TROMETHAMINE 60 MG/2 ML SDV ONE (12:01)
[2019-01-26] MEDS ORDERED: SUCCINYLCHOLINE CHLORIDE INJ 200 MG/10 ML VIAL ONE (12:01)
[2019-01-26] MEDS ORDERED: MAGNESIUM PO PRN (16:54)
[2019-01-26] MEDS ORDERED: EXENATIDE MICROSPHERES SQ SCH (17:00)
[2019-01-26] MEDS: DOCUSATE SODIUM 100 MG CAPSULE PO SCH (17:49)
[2019-01-26] MEDS: CEFAZOLIN SODIUM 1 GM in DEXTROSE 5%-WATER 50 ML IV SCH (17:50)
[2019-01-26] MEDS: ACETAMINOPHEN 1,000 MG/100 ML RTUPB IV SCH (17:50)
[2019-01-26] MEDS ORDERED: ATORVASTATIN CALCIUM 10 MG TABLET PO SCH (22:00)
[2019-01-27] MEDS ORDERED: OXYCODONE-ACETAMINOPHEN 5-325 MG TABLET PO PRN (00:22)
[2019-01-27] MEDS: ACETAMINOPHEN 1,000 MG/100 ML RTUPB IV SCH ×2 (00:39→06:45)
[2019-01-27] MEDS ORDERED: OXYCODONE HCL IR 5 MG TABLET PO PRN (00:54)
[2019-01-27] MEDS: CEFAZOLIN SODIUM 1 GM in DEXTROSE 5%-WATER 50 ML IV SCH ×2 (01:12→09:14)
[2019-01-27] MEDS ORDERED: LEVOTHYROXINE SODIUM 0.15 MG TABLET PO SCH (06:00)
[2019-01-27] MEDS ORDERED: LEVOTHYROXINE SODIUM 0.05 MG TABLET ONE (06:31)
[2019-01-27] MEDS: DOCUSATE SODIUM 100 MG CAPSULE PO SCH (09:11)
[2019-01-27] MEDS: METFORMIN HCL 500 MG TABLET PO SCH ×2 (09:11→09:20)
[2019-01-27] MEDS ORDERED: HYDROCHLOROTHIAZIDE 25 MG TABLET PO SCH (10:00)
[2019-01-27] MEDS ORDERED: CHOLECALCIFEROL (D3) 1,000 UNIT (25 MCG) TABLET PO SCH (10:00)
[2019-01-27] MEDS ORDERED: AMLODIPINE BESYLATE 10 MG TABLET PO SCH (10:00)
[2019-01-27] MEDS ORDERED: FLUOXETINE HCL 20 MG CAPSULE PO SCH (10:00)
[2019-01-27] MEDS ORDERED: ASPIRIN 81 MG TABLET, CHEWABLE PO SCH (10:00)
[2019-01-27 10:32] VITALS: BP 178/70
--- NOTE | 2019-01-27 10:43 | PDOC DISCHARGE SUMMARY ---
General - Admit/Disc Date/PCP Admission Date/Primary Care Provider: MORA PAULA MD Discharge Date: 01/27/19 - Discharge Diagnosis Final Diagnosis: Invasive lobular carcinoma, right breast; CHEK-2 genetic mutation; strong family history of breast cancer - Assessment Summary: Patient is a 63-year-old white female with a history of obesity, diabetes mellitus, and a strong family history of breast cancer who is status post right breast lumpectomy sentinel node biopsy for invasive lobular carcinoma of the right breast. She was found to have positive margins on the lumpectomy s pecimen; she is CHEK-2 gene mutation positive. SHe is now brought to the [facility] ambulatory surgery for bilateral mastectomy. The procedures performed by Dr. Rodriguez on 01/26/2019. She had 4 drains placed, 2 on the right, 2 on the left. She tolerated the operation well, and postoperatively had no complications. The following day she was tolerating a diet, moving about well and had excellent pain control. She was felt to be ready for discharge home. - Additional Information Resuscitation Status: Full Code - Patient instructed on drain manipulation, drainage, and output recording. Patient prescribed Percocet as needed pain. Also prescribed stool softener. Patient to follow-up with [facility] next week, appointment made. She May shower. Discharge Activity: Balance Activity w/Rest, No Lifting Over 10 Pounds, No Lifting/Push/Pulling Referrals: MORA PAULA MD [Primary Care Provider] - HUGO RODRIGUEZ MD [ACTIVE STAFF] - 02/01/19 11:00 am (PLEASE CALL THE OFFICE FOR ANY QUESTIONS OR CONCERNS.) Home Medications: Amlodipine Besylate [Norvasc 10 mg Tablet] 1 tab PO DAILY 11/15/18 Aspirin [Aspirin 81 mg Chewable Tablet] 1 tab PO DAILY 11/15/18 Atorvastatin Calcium [Lipitor 10 mg Tablet] 1 tab PO QHS 11/15/18 Cholecalciferol (Vitamin D3) [Vitamin D3] 1 tab PO DAILY 11/15/18 Exenatide Microspheres [Bydureon Pen] 1 dose SQ ASDIR 11/15/18 Fluoxetine HCl 1 cap PO DAILY 11/15/18 Hydrochlorothiazide [Hydrodiuril 25 mg Tablet] 1 tab PO DAILY 11/15/18 Levothyroxine Sodium [Synthroid 0.15 mg Tablet] 1 tab PO DAILY 11/15/18 Magnesium 1 tab PO DAILY PRN 11/15/18 Metformin HCl 1 tab PO BID 11/15/18 History of Present Illiness History of Present Illness: SILVIA WISE is a 63 year old female Physical Exam Vital Signs: Temp Pulse Resp BP Pulse Ox 98.1 F 78 16 178/70 H 95 01/27/19 10:28 01/27/19 10:28 01/27/19 10:28 01/27/19 10:28 01/27/19 10:28 Intake & Output 01/26/19 01/27/19 01/28/19 06:59 06:59 06:59 Intake Total 0 1575 150 Output Total 1175 400 Balance 0 400 -250 Weight 118 kg 119 kg Results Laboratory Results: WBC 5.6 10^3/uL (4.0-10.5) 01/19/19 08:23 RBC 4.78 10^6/uL (3.72-5.28) 01/19/19 08:23 Hgb 13.3 g/dL (12.0-15.5) 01/19/19 08:23 Hct 40.4 % (36.0-47.0) 01/19/19 08:23 MCV 85 fl (80-97) 01/19/19 08:23 MCH 27.7 pg (27.0-33.4) 01/19/19 08:23 MCHC 32.8 g/dL (32.0-36.0) 01/19/19 08:23 RDW 15.6 % (11.5-14.0) H 01/19/19 08:23 Plt Count 362 10^3/uL (150-450) 01/19/19 08:23 Sodium 138.2 mmol/L (137-145) 01/19/19 08:23 Potassium 4.0 mmol/L (3.6-5.0) 01/26/19 06:35 Chloride 98 mmol/L (98-107) 01/19/19 08:23 Carbon Dioxide 26 mmol/L (22-30) 01/19/19 08:23 Anion Gap 14 (5-19) 01/19/19 08:23 BUN 12 mg/dL (7-20) 01/19/19 08:23 Creatinine 0.57 mg/dL (0.52-1.25) 01/19/19 08:23 Est GFR ( Amer) > 60 (>60) 01/19/19 08:23 Est GFR (MDRD) Non-Af > 60 (>60) 01/19/19 08:23 Glucose 187 mg/dL (75-110) H 01/26/19 06:35 Calcium 10.3 mg/dL (8.4-10.2) H 01/19/19 08:23
== END 2019-01-27 11:15 | disposition home or self-care (01) ==
LOC: OROUT 05:36 → 2N 12:10 → OROUT 01-27 11:15
PROVIDERS: ATTEND Surgery
DX: C50.911 Malignant neoplasm of unspecified site of right female breast (principal); N60.12 Diffuse cystic mastopathy of left breast; N62 Hypertrophy of breast; Z15.01 Genetic susceptibility to malignant neoplasm of breast; Z80.3 Family history of malignant neoplasm of breast; I10 Essential (primary) hypertension; E07.9 Disorder of thyroid, unspecified; E66.9 Obesity, unspecified; G47.30 Sleep apnea, unspecified; Z88.0 Allergy status to penicillin; Z79.84 Long term (current) use of oral hypoglycemic drugs; Z79.899 Other long term (current) drug therapy; Z79.82 Long term (current) use of aspirin; Z68.41 Body mass index [BMI] 40.0-44.9, adult
CPT/HCPCS: 93005; 36415 ×2; 82947; 84132; 85027; 80048; 88342 ×2; 88307 ×2; 88309 ×2; 94799; 93010; 19303; J2250; J0690 ×2; J1885; J3010; J3490; J2270; J0330; J7060 ×2; J7120; J2704; J0131 ×2; 1610

== ENCOUNTER → 2019-05-06 | Outpatient (CLI) | payer OTHER ==
--- NOTE | 2019-05-06 08:37 | WOMENS IMAGING REPORT ---
EXAM DESCRIPTION: BONE DENSITY HIP/SPINE COMPLETED DATE/TIME: 05/06/2019 8:25 am REASON FOR STUDY: M81.0 BONE DENSITY M81.0 AGE-RELATED OSTEOPOROSIS W/O CURRENT PATHOLOGICAL FRAC COMPARISON: Whole-body bone scan 12/29/2018 TECHNIQUE: Dual-Energy X-ray Absorptiometry (DEXA) of the AP Spine and Hip. LIMITATIONS: None. FINDINGS: LUMBAR SPINE: The bone mineral density (BMD) measured from L1-L4 in the AP projection correlates with a T-score of +0.8, which is normal as defined by the World Health Organization. BMD Change vs Baseline: N/A HIP: The bone mineral density (BMD) measured in the left femoral neck at the hip correlates with a T-score of +0.4, which is normal as defined by the World Health Organization. BMD Change vs Baseline: N/A 10 year Fracture Risk Assessment: Major Osteoporotic Fracture: Not available. Hip Fracture: Not available. IMPRESSION: 1. LUMBAR SPINE WHO CLASSIFICATION: Normal 2. HIP WHO CLASSIFICATION: Normal OVERALL ASSESSMENT: WHO CLASSIFICATION: Normal COMMENT: The World Health Organization defines low BMD as follows: T-score: Normal: Greater than -1.0 Osteopenia: Between -1.0 and -2.5 Osteoporosis: Less than -2.5 without fractures Established osteoporosis: Less than -2.5 with fractures In general, you may wish to consider: Diagnosis Treatment Follow-up DEXA Normal BMD Prevention 2-3 years Osteopenia Prevention/Therapy 1-2 years Osteoporosis Therapy Yearly TECHNICAL DOCUMENTATION: JOB ID: [id number] [employer]- All Rights Reserved Reading location - IP/workstation name: [email or web address]
== END ==
LOC: WI 07:55
PROVIDERS: ATTEND Internal Medicine Hematology & Oncology
DX: M81.0 Age-related osteoporosis without current pathological fracture (principal); N95.9 Unspecified menopausal and perimenopausal disorder
CPT/HCPCS: 77080